=== PATIENT | female | born 1980 | race Caucasian/White ===

== ENCOUNTER 2024-01-04 20:48 | Emergency (ER) | payer BC ==
[2024-01-04] MEDS ORDERED: IBUPROFEN 600 MG TABLET (FP) PO ONE (21:08)
[2024-01-04] MEDS: IBUPROFEN 600 MG TABLET (FP) PO ONE (21:11)
[2024-01-04 21:32] VITALS: BP 112/69; PULSE 83; RESP 16; TEMP 97.4; BMI 25.8
== END 2024-01-04 21:36 | disposition home or self-care (01) ==
LOC: FER 20:48
DX: S92.414A Nondisplaced fracture of proximal phalanx of right great toe, initial encounter for closed fracture (principal); W18.39XA Other fall on same level, initial encounter
CPT/HCPCS: 73610-TC-RT-FY; 73630-TC-RT-FY; 99283-25